=== PATIENT | male | born 1950 | race Caucasian/White ===

== ENCOUNTER → 2021-12-18 | Outpatient (CLI) | payer MEDICARE ==
[2021-12-18 18:13] LABS: African American GFR (CKD) 71.1 (60.0-200.0); Anion Gap 9.7 mmol/L (10.00-18.00); BUN/Creat Ratio 13.25 Ratio (12.00-20.00); Blood Urea Nitrogen 15.9 mg/dL (9.0-27.0); Calcium 9.5 mg/dL (8.7-10.3); Carbon Dioxide 24.3 mmol/L (20.0-27.5); Non-African American GFR(CKD) 61.3 (60.0-200.0); Potassium 4.8 mmol/L (3.5-5.5)
== END | disposition home or self-care (01) ==
LOC: LABPAT 10:33
PROVIDERS: ATTEND Urology
DX: Z01.812 Encounter for preprocedural laboratory examination (principal); N20.0 Calculus of kidney
CPT/HCPCS: 80048

== ENCOUNTER 2021-12-21 08:29 | Day surgery (SDC) | payer MEDICARE ==
--- NOTE | 2021-12-20 22:28 | P.GSHP ---
History of Present Illness H&P Date: 12/20/21 Chief Complaint: Right renal colic The patient is a 71-year-old white male who presented with right renal colic. He was found to have an obstructing 5 x 6 mm right UPJ calculus. On 11/20/2021 he underwent cystoscopy with right ureteroscopy. While performing nephroscopy, the calculus could not be located and the ureteroscope froze in the flexed position. This resulted in possible perforation of the right proximal ureter. A ureteral stent was placed. He now comes for stent removal as well as ureteroscopic removal of the calculus. - Constitutional Constitutional: Denies chills, Denies fever - Genitourinary (Male) Genitourinary: Reports flank pain, Reports kidney stones Medications and Allergies Allergies Allergy/AdvReac Type Severity Reaction Status Date / Time No Known Allergies Allergy Verified 12/20/21 14:36 Surgical - Exam - General well developed, well nourished, no distress - Respiratory normal respiratory effort - Abdomen Abdomen: soft, non tender, no guarding, no rigid, no rebound - Genitourinary normal penis with no external lesions, testicles non-tender - Psychiatric oriented to time, oriented to person, oriented to place, speech is normal, evelyn ry intact Results - Imaging CT scan - abdomen: report reviewed, image reviewed Assessment and Plan (1) Calculus of kidney Status: Acute Code(s): N20.0 - CALCULUS OF KIDNEY SNOMED Code(s): 67511411 Plan: Cystoscopy, right ureteral stent removal, right ureteroscopy with Holmium laser lithotripsy and possible stone basketing, possible right ureteral stent replacement. If there is evidence of a right proximal ureteral stricture, balloon dilation will be considered. Potential risks include anesthesia, bleeding, infection, and ureteral injury.
[~2021-12-21 08:29] MED LIST: DEXAMETHASONE SOD PHOSPHATE 4 MG/ML 1 ML VIAL IV ONE; HYDROmorphone 0.5 MG/0.5 ML SYRINGE IVP PRN; LACTATED RINGERS 1,000 ML IV SCH; ONDANSETRON 4 MG/2 ML VIAL IVP ONE
--- NOTE | 2021-12-21 08:54 | XR ---
EXAMINATION TYPE: XR KUB DATE OF EXAM: 12/21/2021 Comparison: None Clinical History: 71-year-old male scheduled for surgery today, Right kidney stone Findings: Right-sided ureteral stent is present. Possible vague densities along the proximal third aspect of th e stent versus bowel content. Multiple pelvic phleboliths. Nonobstructive bowel gas pattern. Impression: Possible vague calculi versus bowel content projecting along the proximal third aspect of the right u reteral stent. Numerous pelvic phleboliths.
[2021-12-21] MEDS ORDERED: fentaNYL (PF) 50 MCG/ML 2 ML AMP ONE (09:55)
[2021-12-21] MEDS ORDERED: LIDOCAINE 2% INJ 20 MG/ML (2 ML VIAL) ONE (09:55)
[2021-12-21] MEDS ORDERED: PROPOFOL 10 MG/ML 20 ML VIAL IV ONE (09:55)
[2021-12-21] MEDS ORDERED: MIDAZOLAM 2 MG/2 ML VIAL ONE (09:55)
[2021-12-21 11:06] VITALS: TEMP 96.8
--- NOTE | 2021-12-21 11:31 | P.OP ---
Date of Procedure: 12/21/21 Preoperative Diagnosis: Right renal calculi Postoperative Diagnosis: Right ureteral calculus, right renal calculi Procedure(s) Performed: Cystoscopy, right ureteral stent removal, right ureteroscopy with Holmium laser lithotripsy and stone basketing Anesthesia: KEMAL Surgeon: Adalid Bedoya Estimated Blood Loss (ml): 10 IV fluids (ml): 700 Pathology: other (Stone fragments, sent for chemical analysis) Condition: stable Disposition: PACU Indications for Procedure: The patient is a 71-year-old white male who presented with right renal colic. He was found to have an obstructing 5 x 6 mm right UPJ calculus. On 11/20/2021 he underwent cystoscopy with right ureteroscopy. While performing nephroscopy, the calculus could not be located and the ureteroscope froze in the flexed position. This resulted in possible perforation of the right proximal ureter. A ureteral stent was placed. He now comes for stent removal as well as ureteroscopic removal of the calculus. Operative Findings: Right UPJ calculus, several small right renal calculi. All fragmented completely. Description of Procedure: The patient was taken to the operating room and placed in the dorsolithotomy position, with legs supported in Yunior stirrups. The external genitalia was prepped and draped sterilely. The 30 lens was used to introduce the 21-[place] cystoscopic sheath through the urethra and into the bladder under direct vision. The prostatic urethra showed evidence of mild lateral lobe enlargement. The bladder was examined in its entirety. No abnormalities were seen. Grasping forceps were used to grasp the distal end of the right ureteral stent, which was removed along with the cystoscope. A 0.038 inch Glidewire was passed through the stent and advanced up to the right renal pelvis. After removing the stent, an 11/13-[place] ureteral access catheter was passed over the wire, up to the proximal ureter. The L[employer] Wolly Doodlea flexible ureteroscope was then passed through the ureteral access catheter sheath, up to the stone located at the UPJ. The 200 micron Holmium laser probe was passed through the ureteroscope, and lithotripsy was performed. Portions of the stone refluxed into the kidney. The ureteroscope was advanced into the kidney, and several calculi were identified within an upper pole calyx. It was unclear whether these were additional calculi or calculi which had refluxed from the UPJ. In any case, all of these were fragmented completely. The larger fragments were removed using a 1.9-[place] nitinol basket and measured 1-2 mm in size. Attention was paid to the ureteropelvic junction and proximal ureter. There was no evidence of scarring, and no residual calculus fragments were seen within the ureter. Several clots at the UPJ were removed using the stone basket. The ureteroscope was then withdrawn along with the ureteral access catheter sheath. The patient tolerated the procedure well and was taken to the recovery room in stable condition. [facility] Report: Procedure Acuity: Elective Stone Size and Location: 5-6 mm, right UPJ Ureteral Dilation: No Ureteral Access Sheath Used: Yes Stone Sent for Analysis: Yes All Stones/Fragments Were Removed with a Basket: No Complications: No Preoperative Antibiotics Given: Yes Stent Placed: No Discharge Medications: None
[2021-12-21 11:39] VITALS: RESP 20
[2021-12-21 12:04] VITALS: BP 158/89; PULSE 70
--- NOTE | 2021-12-21 12:37 | FL ---
Fluoroscopy HISTORY: Right ureteral calculus 36 seconds fluoroscopy time supplied to the referring clinician. 2 intraoperative C-arm images docum ent the procedure. See dictated report from urology.
== END 2021-12-21 12:12 | disposition home or self-care (01) ==
LOC: OR 08:29
PROVIDERS: ATTEND Urology
DX: N20.2 Calculus of kidney with calculus of ureter (principal); I10 Essential (primary) hypertension; E78.5 Hyperlipidemia, unspecified; Z79.899 Other long term (current) drug therapy
CPT/HCPCS: 82365; 74018; 52325; 52353; C1769; J2250; J0690; J3010; J2704; J2001